=== PATIENT | female | born 2000 | race African-American/Black ===

== ENCOUNTER 2022-11-21 01:42 | Inpatient (IN) | payer MEDICAID, OTHER ==
[~2022-11-21] VITALS: Ht 160 cm; Wt 118.8 kg
[2022-11-21] MEDS ORDERED: LIDOCAINE HCL 1% 20ML VIAL (Pyxis) INJ INFIL SCH (02:00)
[2022-11-21] MEDS ORDERED: LACTATED RINGERS 1,000 ML IV SCH (02:00)
[2022-11-21] MEDS ORDERED: MISOPROSTOL 100MCG TABLET VG SCH (02:00)
[2022-11-21] MEDS ORDERED: METHYLERGONOVINE MALEATE 0.2 MG/ML IM PRN ×2 (02:00→04:00)
[2022-11-21] MEDS ORDERED: OXYTOCIN 30 UNITS/500ML NS PMX 500 ML IV SCH ×2 (02:00→04:00)
[2022-11-21] MEDS ORDERED: PENICILLIN G POTASSIUM 5 MMU in DEXT 5% WATER 100 ML IV NR (02:00)
[2022-11-21] MEDS ORDERED: CARBOPROST TROMETHAMINE 250 MCG/ML AMPUL IM PRN (02:00)
[2022-11-21] MEDS ORDERED: RHO(D) IMMUNE GLOBULIN 300 MCG/SYR IM ONE (02:00)
[2022-11-21] MEDS ORDERED: MEPERIDINE HCL/PF 50MG/ML CPJ IV PRN (02:15)
[2022-11-21 02:24] LABS: BASOPHILS % 0.4 % (0.0-2.0); EOSINOPHILS % 0.3 % (0.0-5.0); HEMATOCRIT. 33.4 % (36.0-48.0); LYMPHOCYTES % 19.2 % (20.0-50.0); MEAN CORPUSCULAR HEMOGLOBIN 27.1 pg (28.0-32.0); MEAN CORPUSCULAR VOLUME 81.8 fL (81.0-99.0); NEUTROPHILS % 71.1 % (40.0-76.0); PLATELET 231 x1000/uL (130-400); RED BLOOD CELL COUNT 4.08 mill/uL (4.2-5.4); RED CELL DISTRIBUTION WIDTH 17.7 % (11.6-14.6)
[2022-11-21 02:32] LABS: PARTIAL THROMBOPLASTIN TIME 25.4 sec (23.4-31.0); PROTHROMBIN TIME 10.3 sec (9.6-11.0)
[2022-11-21] MEDS ORDERED: HEMORRHOIDAL SUPP PR PRN (04:00)
[2022-11-21] MEDS ORDERED: GLYCERIN/WITCH HAZEL LEAF MEDICATED PAD TOP PRN (04:00)
[2022-11-21] MEDS ORDERED: LANOLIN OINT 7GM TUBE TOP PRN (04:00)
[2022-11-21] MEDS ORDERED: OXYCODONE HCL/ACETAMINOPHEN 5/325MG TABLET PO PRN (04:00)
[2022-11-21] MEDS ORDERED: BENZOCAINE/LANOLIN/ALOE VERA SPRAY TOP PRN (04:00)
[2022-11-21] MEDS ORDERED: IBUPROFEN 400MG TABLET PO PRN (04:00)
[2022-11-21] MEDS ORDERED: RHO(D) IMMUNE GLOBULIN 300 MCG/SYR IM PRN (04:00)
[2022-11-21] MEDS ORDERED: DIPHENHYDRAMINE 25MG CAPSULE PO PRN (04:00)
[2022-11-21 04:15] VITALS: BP 104/55; PULSE 70; RESP 18; TEMP 98.1; O2SAT 99
[2022-11-21] MEDS: IBUPROFEN 800MG TABLET PO PRN ×3 (04:29→22:12)
[2022-11-21 04:45] VITALS: BP 97/62; PULSE 82; RESP 18
[2022-11-21 05:30] VITALS: BP 101/52; PULSE 78; RESP 18
[2022-11-21] MEDS ORDERED: PENICILLIN G POTASSIUM 2.5 MMU in DEXTROSE 5% WATER 50 ML IV SCH (06:00)
[2022-11-21 08:00] VITALS: BP 106/54; PULSE 69; RESP 18; TEMP 98.5; O2SAT 97
[2022-11-21] MEDS ORDERED: NALOXONE HCL 0.4MG/ML VIAL IV PRN (15:45)
[2022-11-21 16:00] VITALS: BP 103/67; PULSE 62; RESP 18; TEMP 98.5
[2022-11-21] MEDS: PRENATAL VIT/FE FUMARATE/FA TABLET PO SCH (16:20)
[2022-11-21 18:10] LABS: *AMPHETAMINES SCREEN URINE NEGATIVE (NEGATIVE); *BARBITURATES SCREEN URINE NEGATIVE (NEGATIVE); *BENZODIAZEPINES SCREEN URINE NEGATIVE (NEGATIVE); *COCAINE SCREEN URINE NEGATIVE (NEGATIVE); CANNABINOID URINE SCREEN NEGATIVE (NEGATIVE); METHADONE URINE SCREEN NEGATIVE (NEGATIVE); OPIATES URINE SCREEN NEGATIVE (NEGATIVE); PHENCYCLIDINE URINE SCREEN NEGATIVE (NEGATIVE)
[2022-11-21 18:17] LABS: CLARITY URINE TURBID (CLEAR); COLOR URINE RED (YELLOW); KETONES URINE NEGATIVE (NEGATIVE); LEUKOCYTE ESTERASE URINE 2+ (NEGATIVE); NITRITE URINE NEGATIVE (NEGATIVE); OCCULT BLOOD URINE 3+ (NEGATIVE); PH URINE 5.5 (4.5-8.0); PROTEIN URINE 1+ (NEGATIVE); SPECIFIC GRAVITY URINE 1.015 (1.005-1.030)
[2022-11-21] MEDS ORDERED: DOCUSATE SODIUM 100MG CAPSULE PO SCH (21:00)
[2022-11-21 21:20] VITALS: BP 106/62; PULSE 68; RESP 18; TEMP 98.7; O2SAT 98
[2022-11-22 03:00] VITALS: BP 91/45; PULSE 73; RESP 18; TEMP 98.6
[2022-11-22 06:53] LABS: BASOPHILS % 0.5 % (0.0-2.0); EOSINOPHILS % 1.4 % (0.0-5.0); HEMATOCRIT. 28.5 % (36.0-48.0); HEMOGLOBIN. 9.7 g/dL (12.0-16.0); LYMPHOCYTES % 23.9 % (20.0-50.0); MEAN CORPUSCULAR HEMOGLOBIN 27.5 pg (28.0-32.0); MEAN CORPUSCULAR VOLUME 80.9 fL (81.0-99.0); MEAN PLATELET VOLUME 10.5 fl (7.4-10.4); MONOCYTES % 6.8 % (2.0-8.0); NEUTROPHILS % 67.4 % (40.0-76.0); PLATELET 211 x1000/uL (130-400); RED BLOOD CELL COUNT 3.52 mill/uL (4.2-5.4); RED CELL DISTRIBUTION WIDTH 18.1 % (11.6-14.6)
[2022-11-22] MEDS ORDERED: FERROUS SULFATE 325MG TABLET PO SCH (07:30)
[2022-11-22] MEDS: PRENATAL VIT/FE FUMARATE/FA TABLET PO SCH (09:00)
[2022-11-22 10:00] VITALS: BP 106/72; PULSE 68; RESP 18; TEMP 98.7
== END 2022-11-22 16:10 | disposition home or self-care (01) | DRG 560 ==
LOC: OBSVTOIN 01:42 → 8 EST LDRP 01:42 → 8EST 04:00
PROVIDERS: ADMIT Obstetrics & Gynecology; ATTEND Obstetrics & Gynecology
PROC: 10E0XZZ Delivery of Products of Conception, External Approach (ICD-10-PCS; principal; 2022-11-21)
DX: O48.0 Post-term pregnancy (principal); Z37.0 Single live birth; Z3A.40 40 weeks gestation of pregnancy
CPT/HCPCS: 36415; 80305; 81003; 85025; 86592; 86703; 86762; 86850; 86900; 87340; G0378; J2175; J2540; J7060; J2590